=== PATIENT | female | born 1975 | race Asian ===

== ENCOUNTER 2016-08-14 13:01 | Emergency (ER) | payer BC, OTHER ==
[2016-08-14] MEDS ORDERED: FAMOTIDINE 20 MG/2 ML VIAL IVP ONE (13:30)
[2016-08-14] MEDS ORDERED: ONDANSETRON PF 4 MG/2 ML VIAL. IV ONE (13:30)
[2016-08-14] MEDS: NORMAL SALINE IV SCH ×3 (13:31→15:18)
[2016-08-14 13:36] LABS: BASO % 0 % (0-3); EOS % 0 % (0-3); HEMOGLOBIN 13.2 g/dL (12.0-15.5); LYMPH # 0.2 x10^3/uL (1.0-4.8); LYMPH % 3 % (24-48); MEAN CORPUSCULAR HEMOGLOBIN 30 pg (25-35); MEAN CORPUSCULAR HGB CONC 33 g/dL (31-37); MEAN CORPUSCULAR VOLUME 91 fL (79-100); MONO % 2 % (0-9); NEUT % 95 % (31-73); PLATELET COUNT 110 x10^3/uL (140-400); RED BLOOD COUNT 4.37 x10^6/uL (3.50-5.40); RED CELL DISTRIBUTION WIDTH 14.1 % (11.5-14.5); WHITE BLOOD COUNT 6.7 x10^3/uL (4.0-11.0)
[2016-08-14 13:38] LABS: BILIRUBIN,URINE NEGATIVE (NEG); GLUCOSE,URINE NEGATIVE (NEG); NITRITE,URINE NEGATIVE (NEG); PROTEIN,URINE NEGATIVE (NEG-TRACE); UROBILINOGEN,URINE 0.2 mg/dL (0.2 mg/dL)
[2016-08-14 13:42] LABS: BACTERIA,URINE 0 /HPF (0-FEW); RBC,URINE 0 /HPF (0-2); WBC,URINE 0 /HPF (0-4)
[2016-08-14 13:47] LABS: CALCIUM 8.9 mg/dL (8.5-10.1); CREATININE 0.8 mg/dL (0.6-1.0); GFR 78.7; POTASSIUM 3.5 mmol/L (3.5-5.1)
[2016-08-14 13:53] LABS: ALBUMIN 3.6 g/dL (3.4-5.0); ALBUMIN/GLOBULIN RATIO 0.9 (1.0-1.7); TOTAL BILIRUBIN 1.2 mg/dL (0.2-1.0); TOTAL PROTEIN 7.5 g/dL (6.4-8.2)
--- NOTE | 2016-08-14 13:59 | PHYS DOC ---
Past Medical History Past Medical History: No Pertinent History Past Surgical History: Hysterectomy Alcohol Use: None Drug Use: None Adult General Chief Complaint Chief Complaint: FEVER HPI HPI Patient is a 40 year old female who presents with complaint of nausea, vomiting , fever, and body aches. Patient states her symptoms started suddenly this morning. Patient states that she has had 2 episodes of vomiting since this morning. Patient very lightheaded and has been having difficulty with ambulation as she feels that she is going to pass out if she tries to stand up. Patient denies any recent travel. Patient denies any significant past medical history. Patient surgical history significant for hysterectomy. The patient denies any localizing pain at this time. Patient does admit to generalized weakness. Patient has not taken any medications to help with her symptoms at this time. Patient states that she went to bed last night with no symptoms and denies any sick contacts. Review of Systems Review of Systems Constitutional: Fever, chills, bodyaches, lightheadedness [] Eyes: Denies change in visual acuity, redness, or eye pain [] HENT: Denies nasal congestion or sore throat [] Respiratory: Denies cough or shortness of breath [] Cardiovascular: Denies chest pain or edema [] GI: Nausea, vomiting, denies abdominal pain, bloody stools or diarrhea [] : Denies dysuria or hematuria [] Musculoskeletal: Denies back pain or joint pain [] Integument: Denies rash or skin lesions [] Neurologic: Denies headache, focal weakness or sensory changes [] Current Medications Current Medications Current Medications Medications (Trade) Dose Ordered Sig/Marbin Start Time Stop Time Status Last Admin Dose Admin Acetaminophen (Tylenol) 1,000 mg 1X ONCE 08/14/16 14:45 08/14/16 14:50 DC 08/14/16 14:52 1,000 MG Famotidine (Pepcid) 20 mg 1X ONCE 08/14/16 13:30 08/14/16 13:31 DC 08/14/16 13:30 20 MG Ondansetron HCl (Zofran) 4 mg 1X ONCE 08/14/16 13:30 08/14/16 13:31 DC 08/14/16 13:30 4 MG Sodium Chloride 1,440 ml @ 1,440 mls/hr Q1H 08/14/16 13:18 08/14/16 15:52 DC 08/14/16 15:18 1,440 MLS/HR Allergies Allergies Allergies Coded Allergies Type Severity Reaction Last Updated Verified No Known Drug Allergies 12/11/14 No Physical Exam Physical Exam Constitutional: Alert, febrile, appears ill. [] HENT: Normocephalic, atraumatic, bilateral external ears normal, oropharynx dry , no oral exudates, nose normal. [] Eyes: PERRLA, EOMI, conjunctiva normal, no discharge. [] Neck: Normal range of motion, no tenderness, supple, no stridor. [] Cardiovascular: Tachycardia, regular rhythm, no murmur [] Lungs & Thorax: Bilateral breath sounds clear to auscultation [] Abdomen: Bowel sounds normal, soft, no tenderness, no masses, no pulsatile masses. [] Skin: Warm, dry, no erythema, no rash. [] Back: No tenderness, no CVA tenderness. [] Extremities: No tenderness, no cyanosis, no clubbing, ROM intact, no edema. [] Neurologic: Alert and oriented X 3, normal motor function, normal sensory function, no focal deficits noted. [] Current Patient Data Vital Signs Vital Signs Date Time Temp Pulse Resp B/P (MAP) Pulse Ox O2 Delivery O2 Flow Rate FiO2 08/14/16 15:51 91 18 126/60 (82) 97 Room Air 08/14/16 14:00 101.1 101.1 Lab Values Laboratory Tests Test 08/14/16 13:10 08/14/16 13:20 08/14/16 14:15 White Blood Count 6.7 x10^3/uL (4.0-11.0) Red Blood Count 4.37 x10^6/uL (3.50-5.40) Hemoglobin 13.2 g/dL (12.0-15.5) Hematocrit 40.0 % (36.0-47.0) Mean Corpuscular Volume 91 fL (79-100) Mean Corpuscular Hemoglobin 30 pg (25-35) Mean Corpuscular Hemoglobin Concent 33 g/dL (31-37) Red Cell Distribution Width 14.1 % (11.5-14.5) Platelet Count 110 x10^3/uL (140-400) L Neutrophils (%) (Auto) 95 % (31-73) H Lymphocytes (%) (Auto) 3 % (24-48) L Monocytes (%) (Auto) 2 % (0-9) Eosinophils (%) (Auto) 0 % (0-3) Basophils (%) (Auto) 0 % (0-3) Neutrophils # (Auto) 6.4 x10^3uL (1.8-7.7) Lymphocytes # (Auto) 0.2 x10^3/uL (1.0-4.8) L Monocytes # (Auto) 0.1 x10^3/uL (0.0-1.1) Eosinophils # (Auto) 0.0 x10^3/uL (0.0-0.7) Basophils # (Auto) 0.0 x10^3/uL (0.0-0.2) Segmented Neutrophils % 82 % (35-66) H Band Neutrophils % 12 % (0-9) H Lymphocytes % 5 % (24-48) L Monocytes % 1 % (0-10) Toxic Granulation Slight Toxic Vacuolation Slight Platelet Estimate Decreased (ADEQUATE) Sodium Level 138 mmol/L (136-145) Potassium Level 3.5 mmol/L (3.5-5.1) Chloride Level 102 mmol/L (98-107) Carbon Dioxide Level 26 mmol/L (21-32) Anion Gap 10 (6-14) Blood Urea Nitrogen 8 mg/dL (7-20) Creatinine 0.8 mg/dL (0.6-1.0) Estimated GFR (Cockcroft-Gault) 78.7 BUN/Creatinine Ratio 10 (6-20) Glucose Level 102 mg/dL (70-99) H Lactic Acid Level 3.0 mmol/L (0.4-2.0) H 1.7 mmol/L (0.4-2.0) Calcium Level 8.9 mg/dL (8.5-10.1) Total Bilirubin 1.2 mg/dL (0.2-1.0) H Aspartate Amino Transferase (AST) 31 U/L (15-37) Alanine Aminotransferase (ALT) 25 U/L (14-59) Alkaline Phosphatase 75 U/L (46-116) Total Protein 7.5 g/dL (6.4-8.2) Albumin 3.6 g/dL (3.4-5.0) Albumin/Globulin Ratio 0.9 (1.0-1.7) L Lipase 104 U/L (73-393) Urine Collection Type U cath Urine Color Yellow Urine Clarity Clear Urine pH 7.0 Urine Specific [place] 1.010 Urine Protein Negative mg/dL (NEG-TRACE) Urine Glucose (UA) Negative mg/dL (NEG) Urine Ketones (Stick) Negative mg/dL (NEG) Urine Blood Negative (NEG) Urine Nitrite Negative (NEG) Urine Bilirubin Negative (NEG) Urine Urobilinogen Dipstick 0.2 mg/dL (0.2 mg/dL) Urine Leukocyte Esterase Negative (NEG) Urine RBC 0 /HPF (0-2) Urine WBC 0 /HPF (0-4) Urine Bacteria 0 /HPF (0-FEW) Urine Mucus Marked /LPF Laboratory Tests 08/14/16 13:10 Laboratory Tests 08/14/16 13:10 EKG EKG Interpreted by me: Heart rate 109, sinus tachycardia, normal intervals, normal axis, no acute ST/T-wave abnormalities present [] Radiology/Procedures Radiology/Procedures Not performed [] Course & Med Decision Making Course & Med Decision Making Pertinent Labs and Imaging studies reviewed. (See chart for details) The patient was given 2 L of IV fluids, Zofran, and Pepcid in the emergency department. On reevaluation, patient states that she feels better and patient is stable on her feet, however patient was also noted to her remain tachycardic. Patient's blood pressure was 94 systolic which may be close to patient's baseline considering her body mass. The patient was offered admission to the hospital for continued treatment of symptoms and IV hydration. Patient states that she would prefer to go home at this time. I do not feel this to be unreasonable. Patient was provided with a prescription of Zofran and advised to continue with rest, oral hydration, and recommended follow-up in 2 days with her primary doctor. Advised return emergency department for any worsening symptoms. Patient voiced understanding and in agreement with treatment plan. Dragon Disclaimer Dragon Disclaimer This electronic medical record was generated, in whole or in part, using a voice recognition dictation system. Departure Departure Impression: Primary Impression: Viral gastroenteritis Additional Impressions: Dehydration Nausea and vomiting Disposition: HOME, SELF-CARE Condition: IMPROVED Referrals: SEBLE MAHMOOD MD (PCP) Patient Instructions: Viral Gastroenteritis Additional Instructions: Follow-up in 2 days with your primary doctor. Return to emergency department for any worsening symptoms. Scripts Ondansetron (ZOFRAN ODT) 4 Mg Tab.rapdis 4 MG PO Q8HRS Y for NAUSEA/VOMITING, #15 TAB Prov: YANY COLE MD 08/14/16 Problem Qualifiers Additional Impressions: Nausea and vomiting Vomiting type: unspecified Vomiting Intractability: non-intractable Qualified Codes: R11.2 - Nausea with vomiting, unspecified YANY COLE MD August 14, 2016 13:59
[2016-08-14 14:11] LABS: PLT ESTIMATE DECREASED (ADEQUATE); TOXIC GRANULATION SLIGHT; TOXIC VACUOLATION SLIGHT
[2016-08-14] MEDS ORDERED: ACETAMINOPHEN 500 MG TABLET PO ONE (14:45)
[2016-08-14] MEDS ORDERED: ONDA4TAB10 PO (15:42)
[2016-08-14 15:51] VITALS: BP 126/60
--- NOTE | 2016-08-15 06:26 | EKG ---
[facility] [address] [place] [address] Test Date: 2016-08-14 Test Time: 13:30:46 Pat Name: DAFNE CHAN Department: Room: Gender: F [employer]: : 1975 Requested By: YANY COLE Order Number: [id number] Reading MD: Bear Elizabeth Measurements Intervals [place] Rate: 109 P: 38 VA: 120 QRS: 56 QRSD: 70 T: 2 QT: 320 QTc: 432 Interpretive Statements SINUS TACHYCARDIA NON SPECIFIC T ABNORMALITY NON SPECIFIC ST DEPRESSION Electronically Signed On 08-22-2016 8:47:00 CDT by Bear Elizabeth
== END 2016-08-14 15:52 | disposition home or self-care (01) ==
LOC: ER 13:59
DX: A08.4 Viral intestinal infection, unspecified (principal); E86.0 Dehydration; R00.0 Tachycardia, unspecified; Z90.710 Acquired absence of both cervix and uterus
CPT/HCPCS: 36415; 80053; 81001; 83605; 83690; 85007; 85027; 87040; 93005; 96361; 96374; 96375; 99285; J2405; J7030; S0028

== ENCOUNTER 2020-04-10 01:08 | Emergency (ER) | payer OTHER ==
[~2020-04-10] VITALS: Ht 152.4 cm; Wt 50.0 kg
[~2020-04-10 01:08] MED LIST: ONDA4TAB10 PO
--- NOTE | 2020-04-10 01:27 | PHYS DOC ---
Past Medical History Past Medical History: No Pertinent History Past Surgical History: Hysterectomy Smoking Status: Never Smoker Alcohol Use: None Drug Use: None General Adult EDM: Chief Complaint: LACERATION/AVULSION HPI: HPI: 44-year-old female presents via EMS with report of laceration to dorsum of hand between first and second digit which occurred when patient was cutting an orange. Patient reports last tetanus booster greater than 5 years ago. Patient reports placing pressure to wound with interval improvement of bleeding. Denies use of blood thinners. Review of Systems: Review of Systems: Constitutional: Denies fever or chills Musculoskeletal: Reports pain to left hand Integument: Reports laceration to left hand Neurologic: Denies headache, focal weakness or sensory changes Complete systems were reviewed and found to be within normal limits, except as documented in this note. Current Medications: Current Medications Medications (Trade) Dose Ordered Sig/Marbin Start Time Stop Time Status Last Admin Dose Admin Lidocaine/ Epinephrine (LIDOCAINE 2%-EPI 1:100,000 multi-dose) 20 ml 1X ONCE 04/10/20 01:30 04/10/20 01:31 04/10/20 01:17 20 ML Neomycin/ Polymyxin/ Bacitracin (Triple Antibiotic Ointment) 1 pkt 1X ONCE 04/10/20 01:30 04/10/20 01:31 04/10/20 01:18 1 PKT Allergies: Allergies: Allergies Coded Allergies Type Severity Reaction Last Updated Verified No Known Drug Allergies 12/11/14 No Physical Exam: PE: Constitutional: Well developed, well nourished, anxious, non-toxic appearance HENT: Normocephalic, atraumatic Eyes: Conjunctiva normal, no discharge Neck: Normal range of motion,supple Lungs & Thorax: No respiratory distress, equal chest rise and fall Skin: Warm, dry, no erythema, no rash, 2cm linear laceration to dorsum of left hand between 1st and 2nd digits- bleeding controlled Extremities: ROM intact, no edema, laceration as above Neurologic: Alert and oriented X 3, no focal deficits noted Psychologic: Affect normal, judgment normal EKG: EKG: [] Radiology/Procedures: Radiology/Procedures: [] Course & Med Decision Making: Course & Med Decision Making Patient presents with laceration to left hand. Tetanus updated. Wound cleaned, irrigated, and repaired. Dressing applied. Patient stable for discharge with outpatient follow-up with PCP. Discussed findings and plan with patient and family, who acknowledge understanding and agreement. Carli Disclaimer: Carli Disclaimer: This electronic medical record was generated, in whole or in part, using a voice recognition dictation system. Laceration/Wound Repair Laceration/Wound Repair : Wound Location: upper extremity (left hand- dorsal webspace between 1st and 2nd digit) Wound's Depth, Shape: linear Wound Length (cm): 2 Wound Explored: no foreign body removed Irrigated w/ Saline (ccs): 200 Anesthesia: Lidocaine w/ Epi (2%) Volume Anesthetic (ccs): 2 Wound Debrided: minimal Wound Repaired With: sutures Suture Size/Type: 5:0, nylon Number of Sutures: 5 Sterile Dressing Applied?: Yes Progress Verbal consent obtained. Time out performed. Hand hygiene utilized. Wound cleaned with ChloraPrep. Anesthesia obtained via a 25-gauge hypodermic needle with (2) mL's of lidocaine 2% with epinephrine. Copious irrigation performed. Wound well approximated with 5-0 Nylon x 5 simple interrupted sutures. Patient tolerated procedure well and without difficulty. Empiric antibiotic ointment applied prior to sterile dressing with Telfa, kerlex, and coban wrap. Departure Departure Impression: Primary Impression: Hand laceration Qualified Codes: S61.412A - Laceration without foreign body of left hand, initial encounter Disposition: 01 DC HOME SELF CARE/HOMELESS Condition: STABLE Referrals: SEBLE MAHMOOD MD (PCP) Patient Instructions: Laceration Care, Adult, [id number] Additional Instructions: Use over the counter Tylenol and/or Ibuprofen for pain or discomfort. Do not soak your wound. You may shower. Clean wound daily with soap and water. Change dressing 2 times daily. Use over the counter antibiotic ointment with each dressing change. Sutures need to be removed in 10 days. Present to your family doctor or local urgent care for removal. You may also present to the ED but it will be an additional visit/charge. After suture removal you may use Vitamin E ointment to soften the wound and prevent scarring. INES CHAVES DO Apr 10, 2020 01:27
[2020-04-10] MEDS ORDERED: LIDOCAINE 2%/EPI 1:100,000 20 ML VIAL. INJ ONE (01:30)
[2020-04-10] MEDS ORDERED: NEOMY/BACITR/POLYMYXIN OINT PACKET. TP ONE (01:30)
[2020-04-10 02:00] VITALS: BP 101/63
[2020-04-10] MEDS ORDERED: DIPH,PERTUSS(ACELL),TET VAC/PF 0.5 ML SYRINGE. VAX IM ONE (02:30)
== END 2020-04-10 02:05 | disposition home or self-care (01) ==
LOC: ER 01:08
DX: S61.412A Laceration without foreign body of left hand, initial encounter (principal); Z90.710 Acquired absence of both cervix and uterus; W26.8XXA Contact with other sharp object(s), not elsewhere classified, initial encounter; Y93.89 Activity, other specified; Y92.89 Other specified places as the place of occurrence of the external cause; Y99.8 Other external cause status
CPT/HCPCS: 12001; 90471; 90715; 99283; J3490